=== PATIENT | male | born 1935 | race Caucasian/White ===

== ENCOUNTER 2020-02-13 16:14 | Emergency (ER) | payer MEDICARE, OTHER ==
[~2020-02-13] VITALS: Ht 170.2 cm; Wt 81.6 kg
--- NOTE | 2020-02-13 16:20 | NUR ---
PT TAKEN TO BED 1 BY EMS
--- NOTE | 2020-02-13 16:25 | NUR ---
DR. ARMIJO AT BEDSIDE.
[2020-02-13 16:28] VITALS: BP 133/46
[2020-02-13] MEDS ORDERED: ACETAMINOPHEN 325 MG TAB PO ONE (16:30)
[2020-02-13] MEDS ORDERED: NACL 0.9% 1,000 ML IV ONE (16:30)
--- NOTE | 2020-02-13 16:30 | NUR ---
Note undone in EDM - 02/13/20 at 1821 by JOSUÉ 84 Y/O M BIBA FROM [place] C/O COUGH AND FEVER OF UNKNOWN TIME. UPON ASSESSMENT, PT HAS DIFFICULTY VERBALIZING CONCERNS. LUNG SOUNDS DIMINISHED ON LOWER LOBES. PT PLACED ON TEMPER MILL OPERATOR, PULSE OX, BP CUFF. ORAL TEMP 100.9. NO RESPIRATORY DISTRESS NOTED. EQUAL CHEST RISE AND FALL WITH O2 SATURATION OF 99% ON ROOM AIR. PT IN POSITION OF COMFORT. BED LOCKED AT LOWEST POSITION AND SIDE RAILS X 1. CALL LIGHT IN REACH. PMH: ANEMIA, DIABETES MELLITUS, DEMENTIA, PROSTATE, PVD, CKD ALLERGIES: METFORMIN
--- NOTE | 2020-02-13 16:30 | NUR ---
84 Y/O M BIBA FROM [facility] [employer] C/O COUGH AND FEVER OF UNKNOWN TIME. UPON ASSESSMENT, PT HAS DIFFICULTY VERBALIZING CONCERNS. LUNG SOUNDS CLEAR BILATERALLY. PT PLACED ON MARKETING PRODUCTION COORDINATOR, PULSE OX, BP CUFF. ORAL TEMP 100.9. NO RESPIRATORY DISTRESS NOTED. EQUAL CHEST RISE AND FALL WITH O2 SATURATION OF 99% ON ROOM AIR. PT IN POSITION OF COMFORT. BED LOCKED AT LOWEST POSITION AND SIDE RAILS X 1. CALL LIGHT IN REACH. PMH: ANEMIA, DIABETES MELLITUS, DEMENTIA, PROSTATE, PVD, CKD ALLERGIES: METFORMIN
[2020-02-13] MEDS ORDERED: ATOR40TA PO (16:54)
[2020-02-13] MEDS ORDERED: ASPI-1822 PO (16:54)
--- NOTE | 2020-02-13 17:10 | NUR ---
INFLUENZA AND KELSEY SWABS TAKEN TO LAB
[2020-02-13 17:15] LABS: BASOPHILS % (AUTO) 0.5 % (0.0-2.0); EOSINOPHILS # (AUTO) 0.1 K/uL (0-0.4); HEMATOCRIT 29.8 % (36-52); HEMOGLOBIN 10.2 g/dL (12.0-18.0); LYMPHOCYTES # (AUTO) 0.4 K/uL (2.0-11.5); LYMPHOCYTES % (AUTO) 12.7 % (20.5-51.1); MEAN CORPUSCULAR HEMOGLOBIN 34 pg (27-31); MEAN CORPUSCULAR HGB CONC 34 g/dL (33-37); MEAN CORPUSCULAR VOLUME 98.8 fL (80-94); MONOCYTES # (AUTO) 0.3 K/uL (0.8-1.0); MONOCYTES % (AUTO) 8.6 % (1.7-9.3); NEUTROPHILS # (AUTO) 2.7 K/uL (1.8-7.7); NEUTROPHILS % (AUTO) 76.2 % (42.2-75.2); PLATELET COUNT (AUTO) 135 K/uL (140-450); RED BLOOD CELL COUNT(AUTO) 3.02 MIL/uL (4.20-6.10); RED CELL DISTRIBUTION WIDTH 14.8 % (11.6-13.7); WHITE BLOOD COUNT (AUTO) 3.5 K/uL (4.8-10.8)
--- NOTE | 2020-02-13 17:17 | NUR ---
RAD AT BEDSIDE
[2020-02-13 17:26] LABS: PROTHROMBIN TIME 10.3 secs (10.8-13.4)
[2020-02-13 17:27] LABS: ALBUMIN 3.7 g/dL (3.4-5.0); ASPARTATE AMINOTRANSFERASE 25 U/L (15-37); CARBON DIOXIDE 28.4 mmol/L (21-32); CHLORIDE 103 mmol/L (98-107); CREATININE 1.6 mg/dL (0.6-1.3); GLUCOSE 135 mg/dL (74-106); POTASSIUM 4.4 mmol/L (3.5-5.1); SODIUM SERUM 140 mmol/L (136-145); TOTAL BILIRUBIN 0.2 mg/dL (0.0-1.0); UREA NITROGEN, BLOOD 41 mg/dL (7-18)
--- NOTE | 2020-02-13 17:30 | NUR ---
# 15 FR Urinary catheter inserted utilizing sterile technique. Immediate return of 100 ml YELLOW urine noted. Urine sample collected and sent to lab. Pt tolerated procedure WELL.
[2020-02-13 17:40] LABS: C-REACTIVE PROTEIN QUANT 0.8 mg/dL (0.0-0.9); LACTATE DEHYDROGENASE 176 U/L (85-227)
[2020-02-13] MEDS ORDERED: [UNRECOGNIZED DRUG - CODE] PO (18:03)
[2020-02-13] MEDS ORDERED: ESCI10TA PO (18:03)
[2020-02-13] MEDS ORDERED: DOCU-299 PO (18:03)
--- NOTE | 2020-02-13 18:04 | NUR ---
ERMD NOTIFIED OF CRITICAL VALUE: (+) COVID RESULT
[2020-02-13] MEDS ORDERED: GABA400C PO (18:27)
[2020-02-13] MEDS ORDERED: FERR325E14 PO (18:27)
[2020-02-13] MEDS ORDERED: GLIP5TAB4 PO (18:27)
[2020-02-13] MEDS ORDERED: LISI-420 PO (18:27)
[2020-02-13] MEDS ORDERED: HYDR-5092 PO (18:27)
[2020-02-13 18:28] LABS: APPEARANCE,URINE CLEAR (CLEAR); BILIRUBIN,URINE NEGATIVE (NEGATIVE); BLOOD, URINE TRACE-I (NEGATIVE); COLOR,URINE DARK YELLOW (YELLOW); LEUKOCYTE ESTERASE ,URINE NEGATIVE (NEGATIVE); NITRITE, URINE NEGATIVE (NEGATIVE); UGLUCOSE NEGATIVE (NEGATIVE)
--- NOTE | 2020-02-13 18:35 | NUR ---
PT TEMPERATURE DECREASED TO 99.2 AFTER TYLENOL. PT IN POSITION OF COMFORT. V/S STABLE.
[2020-02-13] MEDS ORDERED: CLOP75TA26 PO (18:53)
[2020-02-13] MEDS ORDERED: ONDA4TAB PO (18:53)
[2020-02-13] MEDS ORDERED: SENN-73 PO (18:53)
[2020-02-13] MEDS ORDERED: PANT40EC PO (18:53)
[2020-02-13] MEDS ORDERED: MULT400T14 PO (18:53)
[2020-02-13] MEDS ORDERED: ATI.5 PO (18:53)
[2020-02-13] MEDS ORDERED: IMO2 PO (18:54)
[2020-02-13] MEDS ORDERED: ACET325C8 PO (18:54)
--- NOTE | 2020-02-13 19:13 | NUR ---
RECEIVED CRITICAL FROM LAB FLU A+, FLU B-, GABRIELLA MADE AWARE.
--- NOTE | 2020-02-13 19:17 | NUR ---
REPORT GIVEN TO CARLTON COOPER. TRANSFER OF CARE AT THIS TIME.
--- NOTE | 2020-02-13 19:35 | NUR ---
A/W LAB RESULTS AND FOR POSSSIBLE TRANSFER TO [facility]
--- NOTE | 2020-02-13 20:00 | NUR ---
Patient appears to be resting comfortably in bed. Vital Signs within normal limits. Respirations even and unlabored.SAO2 99%
--- NOTE | 2020-02-14 01:38 | NUR ---
Patient to be transferred to [facility] . Is being transferred due to HIGHER LEVEL AND INSURANCE REQUEST . Receiving facility has accepting physician and available space. ER physician has signed transfer form. Patient or responsible democrat has agreed to transfer and signed form. Patient belongings inventoried and will be sent with patient. Copy of nursing notes, lab reports, EKG, Physicians Orders and X-rays to be sent with patient. Report called to ROBYN at receiving facility. [facility] ambulance service has been called for transfer. ETA 0330 HOURS
--- NOTE | 2020-02-14 02:00 | NUR ---
REPORT GIVEN TO FERNANDO. PATIENT WILL BE TRANSFER TO [facility], UNDER THE SERVICE OF JAROCHO GRAHAM, ROOM [address]
--- NOTE | 2020-02-14 02:15 | NUR ---
JUWAN AVILA - WAS CALLED AND INFORMED REGARDING THE TRANSFER OF
[2020-02-14 03:03] VITALS: BP 123/75
--- NOTE | 2020-02-14 03:03 | NUR ---
Patient Tranfers to outside Facility= [facility] Physician: DR. AVENDAÑO Location: [facility]
== END 2020-02-14 03:03 | disposition short-term general hospital (02) ==
LOC: MED 17:23
DX: U07.1 COVID-19 (principal); I50.9 Heart failure, unspecified; R79.89 Other specified abnormal findings of blood chemistry; D64.9 Anemia, unspecified; J10.1 Influenza due to other identified influenza virus with other respiratory manifestations; Z88.8 Allergy status to other drugs, medicaments and biological substances; Z79.899 Other long term (current) drug therapy; Z79.82 Long term (current) use of aspirin; Z98.890 Other specified postprocedural states
CPT/HCPCS: 36415; 71045; 80053; 81003; 82550; 82728; 83605; 83615; 83880; 84484; 85025; 85379; 85384; 85610; 85730; 86140; 87040; 87426; 87804; 93005; 96360; 99285; J7030